=== PATIENT | female | born 1990 | race Asian ===

== ENCOUNTER 2016-08-08 12:13 | Emergency (ER) | payer MEDICAID ==
[~2016-08-08] VITALS: Ht 154.9 cm; Wt 50.0 kg
[2016-08-08] MEDS ORDERED: TETRACAINE 0.5% OPHTH DROPS 4ML BOTHEYE ONE (13:45)
[2016-08-08 14:02] VITALS: BP 114/70
== END 2016-08-08 15:44 | disposition home or self-care (01) ==
LOC: ER 14:20
DX: H57.11 Ocular pain, right eye (principal)
CPT/HCPCS: 81025; 99282